=== PATIENT | male | born 1955 | race Caucasian/White ===

== ENCOUNTER 2025-06-13 08:39 | Outpatient (CLI) | payer MEDICARE | END 2025-06-13 08:40 | disposition home or self-care (01) | LOC: CSHSLEEP 08:39 | PROVIDERS: ATTEND Internal Medicine Critical Care Medicine | DX: G47.33 Obstructive sleep apnea (adult) (pediatric) (principal); R09.89 Other specified symptoms and signs involving the circulatory and respiratory systems; R06.83 Snoring | CPT/HCPCS: 95800 ==